=== PATIENT | female | born 1955 | race Caucasian/White ===

== ENCOUNTER → 2016-11-19 | Outpatient (CLI) | payer BC ==
[~2016-11-19] MED LIST: ACCUPRIL10 MG PO; LIOTHYRONINE S25 MC1 PO; PRILOSEC OTC20 MG PO; PROVENTIL0.09 MG/A1 IH; SIMVASTATIN40 M1 PO; TRAMADOL 50 MG TAB PO; VENLAFAXINE HY150 MG PO; WELLBUTRIN
== END ==
LOC: RAD 16:16
DX: M25.511 Pain in right shoulder (principal); M25.532 Pain in left wrist; M19.011 Primary osteoarthritis, right shoulder

== ENCOUNTER → 2017-04-04 | Outpatient (CLI) | payer BC | LOC: RAD 10:05 | DX: S22.31XA Fracture of one rib, right side, initial encounter for closed fracture (principal) ==

== ENCOUNTER → 2017-04-11 | Outpatient (REF) | LOC: LAB 13:29 | DX: Z00.00 Encounter for general adult medical examination without abnormal findings (principal) ==

== ENCOUNTER → 2017-04-18 | Outpatient (REF) | LOC: LAB 14:44 | DX: D50.9 Iron deficiency anemia, unspecified (principal) ==

== ENCOUNTER → 2017-04-26 | Outpatient (CLI) | payer BC ==
[2017-04-26] VITALS (10 sets, daily range): BP systolic 116–156; BP diastolic 56–81
[~2017-04-26] VITALS: Ht 162.6 cm; Wt 74.5 kg
== END ==
LOC: AMSURD 09:06 → LAB 09:06
DX: D50.0 Iron deficiency anemia secondary to blood loss (chronic) (principal); C18.2 Malignant neoplasm of ascending colon

== ENCOUNTER → 2017-04-27 | Outpatient (CLI) | payer BC ==
[2017-04-26 18:07] VITALS: BP 156/81
== END ==
LOC: VAS 15:19 → RAD 15:30
DX: I63.9 Cerebral infarction, unspecified (principal); R06.02 Shortness of breath; I34.0 Nonrheumatic mitral (valve) insufficiency; I07.1 Rheumatic tricuspid insufficiency

== ENCOUNTER → 2018-10-16 | Outpatient (CLI) | payer MEDICARE, BC ==
[2017-04-26 18:07] VITALS: BP 156/81
[2018-10-16 15:58] LABS: EOS # 0.1 (0.04-0.40); EOS % 2.2 % (1.0-5.0); HEMATOCRIT 40.4 % (37.0-47.0); HEMOGLOBIN 13.6 g/dL (12.5-16.0); LYMPH# 1.2 (1.50-4.00); MEAN CELL VOLUME 88 fl (78-100); MEAN CORPUSCULAR HEMOGLOBIN 30 pg (27-31); MEAN CORPUSCULAR HGB CONC 34 g/dL (33-37); MEAN PLATELET VOLUME 8.9 fl (7.4-10.4); MONO # 0.5 (0.20-0.80); PLATELET COUNT 334 K/mm3 (130-400); RED BLOOD COUNT 4.57 M/mm3 (4.10-5.30); RED CELL DISTRIBUTION WIDTH 12.7 % (11.5-14.5); WHITE BLOOD COUNT 5.8 K/mm3 (4.8-10.8)
[2018-10-16 16:02] LABS: ALBUMIN 4.3 g/dL (3.5-5.0); CALCIUM 9.8 mg/dL (8.4-10.2); POTASSIUM 3.6 mmol/L (3.6-5.0); TOTAL BILIRUBIN 0.4 mg/dL (0.2-1.3); TOTAL PROTEIN 7.4 g/dL (6.3-8.2)
== END ==
LOC: LAB 15:06
PROVIDERS: Internal Medicine
DX: C18.2 Malignant neoplasm of ascending colon (principal)

== ENCOUNTER → 2019-01-11 | Outpatient (CLI) | payer MEDICARE, BC ==
[2017-04-26 18:07] VITALS: BP 156/81
[2019-01-11 14:36] LABS: EOS # 0.1 (0.04-0.40); EOS % 1.8 % (1.0-5.0); HEMATOCRIT 41.3 % (37.0-47.0); HEMOGLOBIN 13.9 g/dL (12.5-16.0); MEAN CELL VOLUME 89 fl (78-100); MEAN CORPUSCULAR HEMOGLOBIN 30 pg (27-31); MEAN CORPUSCULAR HGB CONC 34 g/dL (33-37); MEAN PLATELET VOLUME 8.9 fl (7.4-10.4); MONO # 0.4 (0.20-0.80); NEU # 3.4 (1.40-6.50); PLATELET COUNT 268 K/mm3 (130-400); RED BLOOD COUNT 4.62 M/mm3 (4.10-5.30); RED CELL DISTRIBUTION WIDTH 13.4 % (11.5-14.5)
[2019-01-11 15:06] LABS: ALBUMIN 4.5 g/dL (3.4-4.8); CALCIUM 11.1 mg/dL (8.4-10.2); TOTAL BILIRUBIN 0.3 mg/dL (0.2-1.2); TOTAL PROTEIN 7.4 g/dL (6.2-8.1)
== END ==
LOC: LAB 14:23
PROVIDERS: Internal Medicine
DX: C18.9 Malignant neoplasm of colon, unspecified (principal)

== ENCOUNTER → 2019-04-25 | Outpatient (CLI) | payer MEDICARE, BC ==
[2017-04-26 18:07] VITALS: BP 156/81
[2019-04-25 14:53] LABS: EOS # 0.1 (0.04-0.40); EOS % 1.3 % (1.0-5.0); HEMATOCRIT 42.8 % (37.0-47.0); HEMOGLOBIN 14.4 g/dL (12.5-16.0); LYMPH# 1.2 (1.50-4.00); MEAN CELL VOLUME 89 fl (78-100); MEAN CORPUSCULAR HEMOGLOBIN 30 pg (27-31); MEAN CORPUSCULAR HGB CONC 34 g/dL (33-37); MEAN PLATELET VOLUME 9.4 fl (7.4-10.4); MONO # 0.5 (0.20-0.80); NEU # 4.2 (1.40-6.50); PLATELET COUNT 303 K/mm3 (130-400); RED BLOOD COUNT 4.79 M/mm3 (4.10-5.30)
[2019-04-25 14:58] LABS: ALBUMIN 4.6 g/dL (3.4-4.8)
[2019-04-25 15:00] LABS: TOTAL PROTEIN 7.7 g/dL (6.2-8.1)
[2019-04-25 15:34] LABS: TOTAL BILIRUBIN 0.4 mg/dL (0.2-1.2)
== END ==
LOC: LAB 14:27
PROVIDERS: Internal Medicine
DX: C18.2 Malignant neoplasm of ascending colon (principal)

== ENCOUNTER → 2019-06-08 | Outpatient (CLI) | payer MEDICARE, BC ==
[2017-04-26 18:07] VITALS: BP 156/81
[2019-06-08 13:21] LABS: ALBUMIN 4.4 g/dL (3.4-4.8); POTASSIUM 4.3 mmol/L (3.5-5.1)
[2019-06-08 13:23] LABS: CALCIUM 10.5 mg/dL (8.3-10.5)
[2019-06-08 13:24] LABS: TOTAL PROTEIN 7.4 g/dL (6.2-8.1)
[2019-06-08 13:26] LABS: TOTAL BILIRUBIN 0.5 mg/dL (0.2-1.2)
== END ==
LOC: LAB 12:44
PROVIDERS: Internal Medicine
DX: Z00.00 Encounter for general adult medical examination without abnormal findings (principal); D50.0 Iron deficiency anemia secondary to blood loss (chronic); I10 Essential (primary) hypertension

== ENCOUNTER → 2019-08-02 | Outpatient (CLI) | payer MEDICARE, BC ==
[2017-04-26 18:07] VITALS: BP 156/81
[2019-08-02 13:45] LABS: EOS # 0.1 (0.04-0.40); EOS % 1.6 % (1.0-5.0); HEMATOCRIT 41.7 % (37.0-47.0); HEMOGLOBIN 13.8 g/dL (12.5-16.0); LYMPH# 1.1 (1.50-4.00); MEAN CELL VOLUME 90 fl (78-100); MEAN CORPUSCULAR HEMOGLOBIN 30 pg (27-31); MEAN CORPUSCULAR HGB CONC 33 g/dL (33-37); MEAN PLATELET VOLUME 8.9 fl (7.4-10.4); MONO # 0.5 (0.20-0.80); NEU # 5.1 (1.40-6.50); PLATELET COUNT 268 K/mm3 (130-400); RED BLOOD COUNT 4.65 M/mm3 (4.10-5.30); RED CELL DISTRIBUTION WIDTH 13.6 % (11.5-14.5); WHITE BLOOD COUNT 6.9 K/mm3 (4.8-10.8)
[2019-08-02 13:55] LABS: ALBUMIN 4.3 g/dL (3.4-4.8)
[2019-08-02 13:56] LABS: POTASSIUM 3.8 mmol/L (3.5-5.1)
[2019-08-02 13:57] LABS: CALCIUM 10.3 mg/dL (8.3-10.5)
[2019-08-02 13:58] LABS: TOTAL PROTEIN 7.2 g/dL (6.2-8.1)
[2019-08-02 14:00] LABS: TOTAL BILIRUBIN 0.6 mg/dL (0.2-1.2)
== END ==
LOC: LAB 13:31
PROVIDERS: Internal Medicine
DX: C18.2 Malignant neoplasm of ascending colon (principal)

== ENCOUNTER → 2019-09-06 | Outpatient (CLI) | payer MEDICARE, BC ==
[2017-04-26 18:07] VITALS: BP 156/81
[2019-09-06 12:11] LABS: HEMATOCRIT 42.9 % (37.0-47.0); HEMOGLOBIN 14.3 g/dL (12.5-16.0); MEAN CELL VOLUME 91 fl (78-100); MEAN CORPUSCULAR HEMOGLOBIN 30 pg (27-31); MEAN CORPUSCULAR HGB CONC 33 g/dL (33-37); PLATELET COUNT 308 K/mm3 (130-400); RED BLOOD COUNT 4.73 M/mm3 (4.10-5.30); RED CELL DISTRIBUTION WIDTH 13.2 % (11.5-14.5); WHITE BLOOD COUNT 13.1 K/mm3 (4.8-10.8)
[2019-09-06 12:32] LABS: ALBUMIN 4.6 g/dL (3.4-4.8)
[2019-09-06 12:33] LABS: POTASSIUM 4.2 mmol/L (3.5-5.1)
[2019-09-06 12:34] LABS: CALCIUM 10.5 mg/dL (8.3-10.5)
[2019-09-06 12:35] LABS: LYMPHOCYTE 16 % (20-51); MONOCYTE 6 % (3-10); NEUTROPHILS 78 % (42-75); TOTAL PROTEIN 7.7 g/dL (6.2-8.1)
[2019-09-06 12:37] LABS: TOTAL BILIRUBIN 0.3 mg/dL (0.2-1.2)
[2019-09-06 13:17] LABS: ERYTHROCYTE SEDIMENTATION RATE 14 mm/hr (0-30)
== END ==
LOC: RAD 11:50
PROVIDERS: Internal Medicine
DX: J98.4 Other disorders of lung (principal); C18.2 Malignant neoplasm of ascending colon; D50.0 Iron deficiency anemia secondary to blood loss (chronic); Z85.038 Personal history of other malignant neoplasm of large intestine; Z95.828 Presence of other vascular implants and grafts

== ENCOUNTER → 2019-10-22 | Outpatient (CLI) | payer MEDICARE, BC ==
[2017-04-26 18:07] VITALS: BP 156/81
[2019-10-22 14:44] LABS: EOS # 0.2 (0.04-0.40); EOS % 2.8 % (1.0-5.0); HEMATOCRIT 42.8 % (37.0-47.0); HEMOGLOBIN 14.2 g/dL (12.5-16.0); LYMPH# 1.3 (1.50-4.00); MEAN CELL VOLUME 90 fl (78-100); MEAN CORPUSCULAR HEMOGLOBIN 30 pg (27-31); MEAN CORPUSCULAR HGB CONC 33 g/dL (33-37); MEAN PLATELET VOLUME 8.8 fl (7.4-10.4); MONO # 0.6 (0.20-0.80); NEU # 3.9 (1.40-6.50); PLATELET COUNT 268 K/mm3 (130-400); RED BLOOD COUNT 4.75 M/mm3 (4.10-5.30); RED CELL DISTRIBUTION WIDTH 13.3 % (11.5-14.5); WHITE BLOOD COUNT 6.1 K/mm3 (4.8-10.8)
[2019-10-22 14:51] LABS: ALBUMIN 4.6 g/dL (3.4-4.8); POTASSIUM 4.1 mmol/L (3.5-5.1)
[2019-10-22 14:53] LABS: CALCIUM 10.6 mg/dL (8.3-10.5)
[2019-10-22 14:54] LABS: TOTAL PROTEIN 7.4 g/dL (6.2-8.1)
[2019-10-22 14:56] LABS: TOTAL BILIRUBIN 0.4 mg/dL (0.2-1.2)
[2019-10-22 15:54] LABS: ERYTHROCYTE SEDIMENTATION RATE 13 mm/hr (0-30)
[2019-10-22 23:27] LABS: IMMUNOGLOBULIN E, TOTAL 51 IU/mL (0-100)
[2019-10-23 00:17] LABS: IMMUNOGLOBULIN A 134 mg/dL (69-517); IMMUNOGLOBULIN G 853 mg/dL (552-1631)
[2019-10-23 00:18] LABS: IGM,SERUM 117 mg/dL (33-293)
== END ==
LOC: LAB 14:28
PROVIDERS: Internal Medicine
DX: C18.2 Malignant neoplasm of ascending colon (principal); I10 Essential (primary) hypertension

== ENCOUNTER → 2019-10-26 | Outpatient (CLI) | payer MEDICARE, BC ==
[2017-04-26 18:07] VITALS: BP 156/81
== END ==
LOC: RAD 08:47
DX: C18.2 Malignant neoplasm of ascending colon (principal); R91.1 Solitary pulmonary nodule; R06.02 Shortness of breath; R05 Cough
CPT/HCPCS: Q9967

== ENCOUNTER → 2019-12-03 | Outpatient (CLI) | payer MEDICARE, BC ==
[2017-04-26 18:07] VITALS: BP 156/81
[2019-12-03 16:04] LABS: EOS # 0.2 (0.04-0.40); EOS % 2.3 % (1.0-5.0); HEMATOCRIT 43.3 % (37.0-47.0); HEMOGLOBIN 14.6 g/dL (12.5-16.0); LYMPH# 1.5 (1.50-4.00); MEAN CELL VOLUME 91 fl (78-100); MEAN CORPUSCULAR HEMOGLOBIN 31 pg (27-31); MEAN CORPUSCULAR HGB CONC 34 g/dL (33-37); MEAN PLATELET VOLUME 9.2 fl (7.4-10.4); MONO # 0.6 (0.20-0.80); NEU # 5.5 (1.40-6.50); PLATELET COUNT 298 K/mm3 (130-400); RED BLOOD COUNT 4.76 M/mm3 (4.10-5.30); RED CELL DISTRIBUTION WIDTH 13.2 % (11.5-14.5); WHITE BLOOD COUNT 7.9 K/mm3 (4.8-10.8)
[2019-12-03 16:27] LABS: ALBUMIN 4.6 g/dL (3.4-4.8)
[2019-12-03 16:28] LABS: CALCIUM 10.3 mg/dL (8.3-10.5)
[2019-12-03 16:29] LABS: TOTAL PROTEIN 7.7 g/dL (6.2-8.1)
[2019-12-03 16:31] LABS: TOTAL BILIRUBIN 0.3 mg/dL (0.2-1.2)
== END ==
LOC: LAB 15:53
PROVIDERS: Internal Medicine
DX: C18.2 Malignant neoplasm of ascending colon (principal)

== ENCOUNTER → 2020-02-05 | Outpatient (CLI) | payer MEDICARE, BC ==
[2017-04-26 18:07] VITALS: BP 156/81
[2020-02-05 08:42] LABS: ALBUMIN 4.5 g/dL (3.4-4.8); POTASSIUM 4.1 mmol/L (3.5-5.1)
[2020-02-05 08:44] LABS: TOTAL PROTEIN 7.2 g/dL (6.2-8.1)
[2020-02-05 08:46] LABS: TOTAL BILIRUBIN 0.4 mg/dL (0.2-1.2)
== END ==
LOC: LAB 08:19
PROVIDERS: Internal Medicine
DX: R06.02 Shortness of breath (principal); R73.02 Impaired glucose tolerance (oral); I10 Essential (primary) hypertension; C18.2 Malignant neoplasm of ascending colon

== ENCOUNTER → 2020-02-07 | Outpatient (CLI) | payer MEDICARE, BC ==
[2017-04-26 18:07] VITALS: BP 156/81
== END ==
LOC: RAD 15:44
DX: I08.1 Rheumatic disorders of both mitral and tricuspid valves (principal); I10 Essential (primary) hypertension; C18.2 Malignant neoplasm of ascending colon; R09.02 Hypoxemia

== ENCOUNTER → 2020-02-29 | Outpatient (CLI) | payer MEDICARE, BC ==
[2017-04-26 18:07] VITALS: BP 156/81
== END ==
LOC: LAB 15:45
PROVIDERS: Internal Medicine Pulmonary Disease
DX: J32.9 Chronic sinusitis, unspecified (principal); G47.52 REM sleep behavior disorder; R09.02 Hypoxemia

== ENCOUNTER → 2020-03-04 | Outpatient (CLI) | payer MEDICARE, BC ==
[2017-04-26 18:07] VITALS: BP 156/81
== END ==
LOC: RAD 08:23
DX: K76.89 Other specified diseases of liver (principal); J32.9 Chronic sinusitis, unspecified; Z85.030 Personal history of malignant carcinoid tumor of large intestine
CPT/HCPCS: Q9967

== ENCOUNTER → 2020-03-05 | Outpatient (CLI) | payer MEDICARE, BC ==
[2017-04-26 18:07] VITALS: BP 156/81
[2020-03-05 16:10] LABS: EOS # 0.1 (0.04-0.40); EOS % 1.7 % (1.0-5.0); HEMATOCRIT 41.6 % (37.0-47.0); HEMOGLOBIN 14.1 g/dL (12.5-16.0); MEAN CELL VOLUME 90 fl (78-100); MEAN CORPUSCULAR HEMOGLOBIN 31 pg (27-31); MEAN CORPUSCULAR HGB CONC 34 g/dL (33-37); MEAN PLATELET VOLUME 9.4 fl (7.4-10.4); MONO # 0.5 (0.20-0.80); NEU # 4.8 (1.40-6.50); PLATELET COUNT 275 K/mm3 (130-400); WHITE BLOOD COUNT 6.5 K/mm3 (4.8-10.8)
[2020-03-05 16:13] LABS: ALBUMIN 4.5 g/dL (3.4-4.8); POTASSIUM 4.1 mmol/L (3.5-5.1)
[2020-03-05 16:15] LABS: CALCIUM 10.2 mg/dL (8.3-10.5)
[2020-03-05 16:16] LABS: TOTAL PROTEIN 7.8 g/dL (6.2-8.1)
[2020-03-05 16:18] LABS: TOTAL BILIRUBIN 0.4 mg/dL (0.2-1.2)
== END ==
LOC: LAB 15:40
PROVIDERS: Internal Medicine
DX: C18.2 Malignant neoplasm of ascending colon (principal)

== ENCOUNTER → 2020-04-09 | Outpatient (CLI) | payer MEDICARE, BC ==
[2017-04-26 18:07] VITALS: BP 156/81
== END ==
LOC: LAB 14:42
DX: Z20.828 Contact with and (suspected) exposure to other viral communicable diseases (principal)

== ENCOUNTER → 2020-07-03 | Outpatient (CLI) | payer MEDICARE, BC ==
[2017-04-26 18:07] VITALS: BP 156/81
== END ==
LOC: RAD 08:55
DX: C18.2 Malignant neoplasm of ascending colon (principal); K76.0 Fatty (change of) liver, not elsewhere classified; N20.0 Calculus of kidney; E27.8 Other specified disorders of adrenal gland
CPT/HCPCS: Q9967

== ENCOUNTER → 2020-11-03 | Outpatient (CLI) | payer MEDICARE, BC ==
[2017-04-26 18:07] VITALS: BP 156/81
[2020-11-03 16:36] LABS: EOS # 0.2 (0.04-0.40); EOS % 4.3 % (1.0-5.0); HEMATOCRIT 42.6 % (37.0-47.0); HEMOGLOBIN 14.3 g/dL (12.5-16.0); LYMPH# 1.4 (1.50-4.00); MEAN CELL VOLUME 91 fl (78-100); MEAN CORPUSCULAR HEMOGLOBIN 31 pg (27-31); MEAN CORPUSCULAR HGB CONC 34 g/dL (33-37); MEAN PLATELET VOLUME 9.6 fl (7.4-10.4); MONO # 0.5 (0.20-0.80); NEU # 3.3 (1.40-6.50); PLATELET COUNT 248 K/mm3 (130-400); RED BLOOD COUNT 4.67 M/mm3 (4.10-5.30); RED CELL DISTRIBUTION WIDTH 12.7 % (11.5-14.5); WHITE BLOOD COUNT 5.5 K/mm3 (4.8-10.8)
[2020-11-03 16:38] LABS: ALBUMIN 4.7 g/dL (3.4-4.8); POTASSIUM 4.1 mmol/L (3.5-5.1)
[2020-11-03 16:40] LABS: CALCIUM 10.5 mg/dL (8.3-10.5)
[2020-11-03 16:41] LABS: TOTAL PROTEIN 7.9 g/dL (6.2-8.1)
[2020-11-03 18:13] LABS: TOTAL BILIRUBIN 0.5 mg/dL (0.2-1.2)
== END ==
LOC: LAB 16:13
PROVIDERS: Internal Medicine
DX: C18.9 Malignant neoplasm of colon, unspecified (principal)

== ENCOUNTER → 2020-11-05 | Outpatient (CLI) | payer MEDICARE, BC ==
[2017-04-26 18:07] VITALS: BP 156/81
== END ==
LOC: RAD 08:27
DX: C18.2 Malignant neoplasm of ascending colon (principal); Z90.49 Acquired absence of other specified parts of digestive tract; Z90.710 Acquired absence of both cervix and uterus
CPT/HCPCS: Q9967

== ENCOUNTER → 2021-01-14 | Outpatient (CLI) | payer MEDICARE, BC ==
[2017-04-26 18:07] VITALS: BP 156/81
[2021-01-14 08:54] LABS: BASO # 0.02 (0.02-0.10); EOS # 0.09 (0.04-0.40); EOS % 1.9 % (1.0-5.0); HEMATOCRIT 40.1 % (37.0-47.0); HEMOGLOBIN 13.4 g/dL (12.5-16.0); LYMPH# 1.05 (1.50-4.00); MEAN CELL VOLUME 91 fl (78-100); MEAN CORPUSCULAR HEMOGLOBIN 30 pg (27-31); MEAN CORPUSCULAR HGB CONC 33 g/dL (33-37); MEAN PLATELET VOLUME 9.1 fl (7.4-10.4); MONO # 0.32 (0.20-0.80); NEU # 3.37 (1.40-6.50); PLATELET COUNT 218 K/mm3 (130-400); RED BLOOD COUNT 4.41 M/mm3 (4.10-5.30); RED CELL DISTRIBUTION WIDTH 12.3 % (11.5-14.5); WHITE BLOOD COUNT 4.9 K/mm3 (4.8-10.8)
[2021-01-14 09:01] LABS: ALBUMIN 4.3 g/dL (3.4-4.8); POTASSIUM 4.4 mmol/L (3.5-5.1)
[2021-01-14 09:02] LABS: CALCIUM 9.9 mg/dL (8.3-10.5)
[2021-01-14 09:06] LABS: TOTAL BILIRUBIN 0.6 mg/dL (0.2-1.2)
[2021-01-14 10:07] LABS: ERYTHROCYTE SEDIMENTATION RATE 18 mm/hr (0-30)
[2021-01-15 10:35] LABS: CARCINOEMBRYONIC ANTIGEN 0.8 ng/mL (0.0-5.0)
== END ==
LOC: LAB 08:30
PROVIDERS: Internal Medicine
DX: C18.2 Malignant neoplasm of ascending colon (principal); K90.9 Intestinal malabsorption, unspecified; E78.5 Hyperlipidemia, unspecified; I10 Essential (primary) hypertension; R73.9 Hyperglycemia, unspecified

== ENCOUNTER → 2021-05-04 | Outpatient (CLI) | payer MEDICARE, BC ==
[2021-05-04 08:47] LABS: ALBUMIN 4.3 g/dL (3.4-4.8); POTASSIUM 4.6 mmol/L (3.5-5.1)
[2021-05-04 08:48] LABS: CALCIUM 10.7 mg/dL (8.3-10.5)
[2021-05-04 08:49] LABS: BASO # 0.04 (0.02-0.10); EOS # 0.16 (0.04-0.40); EOS % 2.6 % (1.0-5.0); HEMATOCRIT 42.3 % (37.0-47.0); HEMOGLOBIN 14.3 g/dL (12.5-16.0); LYMPH# 1.18 (1.50-4.00); MEAN CELL VOLUME 91 fl (78-100); MEAN CORPUSCULAR HEMOGLOBIN 31 pg (27-31); MEAN CORPUSCULAR HGB CONC 34 g/dL (33-37); MEAN PLATELET VOLUME 8.9 fl (7.4-10.4); NEU # 4.31 (1.40-6.50); PLATELET COUNT 239 K/mm3 (130-400); RED BLOOD COUNT 4.67 M/mm3 (4.10-5.30); RED CELL DISTRIBUTION WIDTH 12.4 % (11.5-14.5); WHITE BLOOD COUNT 6.1 K/mm3 (4.8-10.8)
[2021-05-04 08:50] LABS: TOTAL PROTEIN 7.3 g/dL (6.2-8.1)
[2021-05-04 08:51] LABS: TOTAL BILIRUBIN 0.6 mg/dL (0.2-1.2)
== END ==
LOC: LAB 08:09
PROVIDERS: Internal Medicine
DX: C18.9 Malignant neoplasm of colon, unspecified (principal)

== ENCOUNTER → 2021-05-06 | Outpatient (CLI) | payer MEDICARE, BC | END | disposition still patient (30) | LOC: RAD 08:00 | DX: C18.9 Malignant neoplasm of colon, unspecified (principal); D35.01 Benign neoplasm of right adrenal gland; Z90.49 Acquired absence of other specified parts of digestive tract; Z90.710 Acquired absence of both cervix and uterus | CPT/HCPCS: Q9967 ==

== ENCOUNTER → 2021-10-30 | Outpatient (CLI) | payer MEDICARE, BC ==
[2021-10-30 15:13] LABS: BASO # 0.03 K/mm3 (0.02-0.10); EOS # 0.14 K/mm3 (0.04-0.40); EOS % 2.7 % (1.0-5.0); HEMATOCRIT 41.5 % (37.0-47.0); LYMPH# 1.27 K/mm3 (1.50-4.00); MEAN CELL VOLUME 92 fl (78-100); MEAN CORPUSCULAR HEMOGLOBIN 31 pg (27-31); MEAN CORPUSCULAR HGB CONC 34 g/dL (33-37); MEAN PLATELET VOLUME 9.3 fl (7.4-10.4); MONO # 0.34 K/mm3 (0.20-0.80); NEU # 3.44 K/mm3 (1.40-6.50); PLATELET COUNT 261 K/mm3 (130-400); RED BLOOD COUNT 4.53 M/mm3 (4.10-5.30); RED CELL DISTRIBUTION WIDTH 12.7 % (11.5-14.5); WHITE BLOOD COUNT 5.2 K/mm3 (4.8-10.8)
[2021-10-30 15:32] LABS: ALBUMIN 4.5 g/dL (3.4-4.8); POTASSIUM 3.9 mmol/L (3.5-5.1)
[2021-10-30 15:33] LABS: CALCIUM 10.3 mg/dL (8.3-10.5)
[2021-10-30 15:34] LABS: TOTAL PROTEIN 7.6 g/dL (6.2-8.1)
[2021-10-30 15:36] LABS: TOTAL BILIRUBIN 0.4 mg/dL (0.2-1.2)
== END ==
LOC: LAB 14:51
PROVIDERS: Internal Medicine
DX: Z01.89 Encounter for other specified special examinations (principal)

== ENCOUNTER → 2021-11-16 | Outpatient (CLI) | payer MEDICARE, BC | LOC: RAD 11-09 10:00 | DX: C18.9 Malignant neoplasm of colon, unspecified (principal); Z90.49 Acquired absence of other specified parts of digestive tract | CPT/HCPCS: Q9967 ==

== ENCOUNTER → 2022-02-05 | Outpatient (CLI) | payer MEDICARE, BC ==
[2022-02-05 14:46] LABS: BASO # 0.02 K/mm3 (0.02-0.10); EOS # 0.17 K/mm3 (0.04-0.40); EOS % 2.7 % (1.0-5.0); HEMATOCRIT 43.8 % (37.0-47.0); HEMOGLOBIN 14.8 g/dL (12.5-16.0); LYMPH# 1.38 K/mm3 (1.50-4.00); MEAN CELL VOLUME 91 fl (78-100); MEAN CORPUSCULAR HEMOGLOBIN 31 pg (27-31); MEAN CORPUSCULAR HGB CONC 34 g/dL (33-37); MEAN PLATELET VOLUME 8.9 fl (7.4-10.4); MONO # 0.43 K/mm3 (0.20-0.80); NEU # 4.37 K/mm3 (1.40-6.50); PLATELET COUNT 251 K/mm3 (130-400); RED BLOOD COUNT 4.79 M/mm3 (4.10-5.30); RED CELL DISTRIBUTION WIDTH 12.4 % (11.5-14.5); WHITE BLOOD COUNT 6.4 K/mm3 (4.8-10.8)
[2022-02-05 14:55] LABS: ALBUMIN 4.7 g/dL (3.4-4.8); POTASSIUM 3.9 mmol/L (3.5-5.1)
[2022-02-05 14:56] LABS: CALCIUM 10.5 mg/dL (8.3-10.5)
[2022-02-05 14:59] LABS: TOTAL BILIRUBIN 0.4 mg/dL (0.2-1.2)
[2022-02-05 15:04] LABS: MAGNESIUM 2.23 mg/dL (1.60-2.60)
[2022-02-05 19:24] LABS: ERYTHROCYTE SEDIMENTATION RATE 19 mm/hr (0-30)
[2022-02-06 01:19] LABS: CARCINOEMBRYONIC ANTIGEN 0.8 ng/mL (0.0-5.0)
== END ==
LOC: LAB 14:32
PROVIDERS: Internal Medicine
DX: Z12.11 Encounter for screening for malignant neoplasm of colon (principal); C18.2 Malignant neoplasm of ascending colon; D50.9 Iron deficiency anemia, unspecified; E78.5 Hyperlipidemia, unspecified; I10 Essential (primary) hypertension; R73.9 Hyperglycemia, unspecified; K90.9 Intestinal malabsorption, unspecified

== ENCOUNTER → 2022-03-03 | Outpatient (CLI) | payer MEDICARE, BC | LOC: MAMMO 09:10 | DX: Z12.31 Encounter for screening mammogram for malignant neoplasm of breast (principal) ==

== ENCOUNTER → 2022-03-15 | Outpatient (CLI) | payer MEDICARE, BC | LOC: RAD 11:12 | DX: I63.9 Cerebral infarction, unspecified (principal) | CPT/HCPCS: A9575 ==

== ENCOUNTER → 2022-04-01 | Outpatient (CLI) | payer MEDICARE, BC | LOC: LAB 07:54 | DX: U07.1 COVID-19 (principal) ==

== ENCOUNTER → 2022-05-10 | Outpatient (CLI) | payer MEDICARE, BC | LOC: LAB 16:40 | DX: N30.01 Acute cystitis with hematuria (principal) ==

== ENCOUNTER → 2022-07-07 | Outpatient (CLI) | payer MEDICARE, BC ==
[2022-07-07 23:17] LABS: FOLATE (FOLIC ACID) 10.2 ng/mL (2.0-20.0)
[2022-07-11 08:49] LABS: VITAMIN E 10.6 mg/L (())
== END ==
LOC: LAB 09:09
PROVIDERS: Psychiatry & Neurology Neurology
DX: R41.3 Other amnesia (principal)

== ENCOUNTER → 2022-11-19 | Outpatient (CLI) | payer MEDICARE, BC ==
[2022-11-19 08:53] LABS: BASO # 0.02 K/mm3 (0.02-0.10); EOS # 0.12 K/mm3 (0.04-0.40); EOS % 2.6 % (1.0-5.0); HEMATOCRIT 41.8 % (37.0-47.0); HEMOGLOBIN 13.9 g/dL (12.5-16.0); LYMPH# 1.37 K/mm3 (1.50-4.00); MEAN CELL VOLUME 93 fl (78-100); MEAN CORPUSCULAR HEMOGLOBIN 31 pg (27-31); MEAN CORPUSCULAR HGB CONC 33 g/dL (33-37); MEAN PLATELET VOLUME 9.2 fl (7.4-10.4); MONO # 0.31 K/mm3 (0.20-0.80); NEU # 2.76 K/mm3 (1.40-6.50); PLATELET COUNT 238 K/mm3 (130-400); RED BLOOD COUNT 4.51 M/mm3 (4.10-5.30); RED CELL DISTRIBUTION WIDTH 12.7 % (11.5-14.5); WHITE BLOOD COUNT 4.6 K/mm3 (4.8-10.8)
[2022-11-19 09:00] LABS: ALBUMIN 4.4 g/dL (3.4-4.8); POTASSIUM 4.1 mmol/L (3.5-5.1)
[2022-11-19 09:01] LABS: CALCIUM 10.1 mg/dL (8.3-10.5)
[2022-11-19 09:02] LABS: TOTAL PROTEIN 6.9 g/dL (6.2-8.1)
[2022-11-19 09:04] LABS: TOTAL BILIRUBIN 0.3 mg/dL (0.2-1.2)
[2022-11-19 09:05] LABS: URINE APPEARANCE CLEAR; URINE BILIRUBIN NEGATIVE (NEGATIVE); URINE BLOOD NEGATIVE (NEGATIVE); URINE COLOR YELLOW; URINE GLUCOSE NEGATIVE (NEGATIVE); URINE KETONE NEGATIVE (NEGATIVE); URINE LEUKOCYTE ESTERASE NEGATIVE (NEGATIVE); URINE NITRATE NEGATIVE (NEGATIVE); URINE PROTEIN(semi-quant) NEGATIVE (NEGATIVE); URINE UROBILINOGEN NORMAL (NORMAL)
[2022-11-19 09:09] LABS: MAGNESIUM 2.26 mg/dL (1.60-2.60)
[2022-11-19 10:00] LABS: ERYTHROCYTE SEDIMENTATION RATE 12 mm/hr (0-30)
== END ==
LOC: LAB 08:34
PROVIDERS: Internal Medicine
DX: Z12.39 Encounter for other screening for malignant neoplasm of breast (principal); C18.2 Malignant neoplasm of ascending colon; I63.9 Cerebral infarction, unspecified; I10 Essential (primary) hypertension; D50.9 Iron deficiency anemia, unspecified; K90.9 Intestinal malabsorption, unspecified; N39.0 Urinary tract infection, site not specified; E78.5 Hyperlipidemia, unspecified; M85.80 Other specified disorders of bone density and structure, unspecified site; F32.9 Major depressive disorder, single episode, unspecified; M25.561 Pain in right knee

== ENCOUNTER → 2022-11-23 | Outpatient (CLI) | payer MEDICARE, BC | LOC: RAD 10:45 → MAMMO 10:45 → RAD 11:01 | DX: M17.12 Unilateral primary osteoarthritis, left knee (principal); M85.89 Other specified disorders of bone density and structure, multiple sites; M85.80 Other specified disorders of bone density and structure, unspecified site; M81.0 Age-related osteoporosis without current pathological fracture ==

== ENCOUNTER → 2023-06-17 | Outpatient (CLI) | payer MEDICARE, BC ==
[2023-06-17 08:53] LABS: BASO # 0.03 K/mm3 (0.02-0.10); EOS # 0.15 K/mm3 (0.04-0.40); EOS % 2.7 % (1.0-5.0); HEMATOCRIT 38.4 % (37.0-47.0); HEMOGLOBIN 12.8 g/dL (12.5-16.0); MEAN CELL VOLUME 93 fl (78-100); MEAN CORPUSCULAR HEMOGLOBIN 31 pg (27-31); MEAN CORPUSCULAR HGB CONC 33 g/dL (33-37); MEAN PLATELET VOLUME 8.8 fl (7.4-10.4); MONO # 0.49 K/mm3 (0.20-0.80); NEU # 3.81 K/mm3 (1.40-6.50); PLATELET COUNT 280 K/mm3 (130-400); RED BLOOD COUNT 4.15 M/mm3 (4.10-5.30); RED CELL DISTRIBUTION WIDTH 12.1 % (11.5-14.5); WHITE BLOOD COUNT 5.7 K/mm3 (4.8-10.8)
[2023-06-17 09:00] LABS: CALCIUM 10.2 mg/dL (8.3-10.5)
[2023-06-17 09:01] LABS: TOTAL PROTEIN 7.1 g/dL (6.2-8.1)
[2023-06-17 09:03] LABS: TOTAL BILIRUBIN 0.3 mg/dL (0.2-1.2)
[2023-06-17 09:07] LABS: MAGNESIUM 1.93 mg/dL (1.60-2.60)
== END ==
LOC: LAB 08:41
PROVIDERS: Internal Medicine
DX: C18.2 Malignant neoplasm of ascending colon (principal); I63.9 Cerebral infarction, unspecified; D50.9 Iron deficiency anemia, unspecified; G62.0 Drug-induced polyneuropathy; I10 Essential (primary) hypertension; E78.2 Mixed hyperlipidemia; R41.3 Other amnesia; R73.03 Prediabetes; E78.5 Hyperlipidemia, unspecified; K90.9 Intestinal malabsorption, unspecified

== ENCOUNTER → 2024-02-08 | Outpatient (CLI) | payer MEDICARE, BC ==
[2024-02-08 15:43] LABS: ALBUMIN 4.5 g/dL (3.4-4.8); BASO # 0.02 K/mm3 (0.02-0.10); EOS # 0.15 K/mm3 (0.04-0.40); HEMATOCRIT 40.3 % (37.0-47.0); HEMOGLOBIN 13.5 g/dL (12.5-16.0); LYMPH# 1.32 K/mm3 (1.50-4.00); MEAN CELL VOLUME 92 fl (78-100); MEAN CORPUSCULAR HEMOGLOBIN 31 pg (27-31); MEAN CORPUSCULAR HGB CONC 34 g/dL (33-37); MEAN PLATELET VOLUME 9.5 fl (7.4-10.4); MONO # 0.32 K/mm3 (0.20-0.80); NEU # 3.24 K/mm3 (1.40-6.50); PLATELET COUNT 231 K/mm3 (130-400); RED BLOOD COUNT 4.39 M/mm3 (4.10-5.30); RED CELL DISTRIBUTION WIDTH 12.1 % (11.5-14.5); WHITE BLOOD COUNT 5.1 K/mm3 (4.8-10.8)
[2024-02-08 15:44] LABS: CALCIUM 10.6 mg/dL (8.3-10.5)
[2024-02-08 15:45] LABS: TOTAL PROTEIN 7.3 g/dL (6.2-8.1)
[2024-02-08 15:47] LABS: TOTAL BILIRUBIN 0.3 mg/dL (0.2-1.2)
[2024-02-08 15:52] LABS: MAGNESIUM 2.09 mg/dL (1.60-2.60)
[2024-02-08 16:16] LABS: PH-URINE 5.5 (5.0 - 8.0); URINE APPEARANCE CLOUDY (CLEAR); URINE BILIRUBIN NEGATIVE (NEGATIVE); URINE BLOOD NEGATIVE (NEGATIVE); URINE COLOR YELLOW (YELLOW); URINE GLUCOSE NEGATIVE (NEGATIVE); URINE KETONE NEGATIVE (NEGATIVE); URINE NITRATE NEGATIVE (NEGATIVE); URINE PROTEIN(semi-quant) NEGATIVE (NEGATIVE)
[2024-02-08 16:17] LABS: URINE LEUKOCYTE ESTERASE TRACE (NEGATIVE); URINE MUCUS PRESENT (NOT PRESENT)
[2024-02-08 23:08] LABS: IMMUNOGLOBULIN E, TOTAL <25 IU/mL (0-100)
[2024-02-08 23:27] LABS: CARCINOEMBRYONIC ANTIGEN 0.8 ng/mL (0.0-5.0)
== END ==
LOC: LAB 15:12
PROVIDERS: Internal Medicine
DX: Z12.11 Encounter for screening for malignant neoplasm of colon (principal); E78.5 Hyperlipidemia, unspecified; K90.9 Intestinal malabsorption, unspecified; C18.2 Malignant neoplasm of ascending colon; I10 Essential (primary) hypertension; J45.50 Severe persistent asthma, uncomplicated; R73.03 Prediabetes